=== PATIENT | female | born 1950 | race Caucasian/White ===

== ENCOUNTER 2018-10-19 22:37 | Emergency (ER) | payer OTHER ==
[2018-10-19] MEDS ORDERED: OXYMETAZOLINE 30 ML NASAL SPRAY ONE (22:48)
--- NOTE | 2018-10-19 23:05 | EDPHY ---
H & P Stated Complaint: nosebleed Time Seen by Provider: 10/19/18 23:04 HPI/ROS: HPI CHIEF COMPLAINT: Epistaxis. HISTORY OF PRESENT ILLNESS: 68-year-old female presents emergency room epistaxis, she is visiting from [place], she staying [place]. Approximately 2 hr ago she developed a nose bleed. She is on aspirin and Plavix. No trauma. Denies chest pain. Has had some increased fatigue at this elevation. But has been here multiple times before. No abnormal swelling. She staying well hydrated. She does not have any other complaints. She was unable to control her epistaxis home arrived to the emergency room by private vehicle. Past Medical History: History of coronary artery disease with stents, CHF on aspirin and Plavix Past Surgical History: Coronary artery disease with stent. Social History: Denies drugs alcohol tobacco. Family History: Noncontributory ROS REVIEW OF SYSTEMS: 10 Systems were reviewed and negative with the exception of the elements mentioned in the history of present illness. Exam Constitutional appears well nontoxic no acute distress triage nursing summary reviewed, vital signs reviewed, awake/alert. Eyes normal conjunctivae and sclera, EOMI, PERRLA. HENT anterior nose bleed right Nare. Left Nare: Blood present anterior. moist mucus membranes, no epistaxis, neck supple/ no meningismus, no raccoon eyes. Respiratory clear to auscultation bilaterally, normal breath sounds, no respiratory distress, no wheezing. Cardiovascular rate normal, regular rhythm, no murmur, no edema, distal pulses normal. Gastrointestinal soft, non-tender, no rebound, no guarding, normal bowel sounds, no distension, no pulsatile mass. Genitourinary no CVA tenderness. Musculoskeletal no midline vertebral tenderness, full range of motion, no calf swelling, no tenderness of extremities, no meningismus, good pulses, neurovascularly intact. Skin pink, warm, & dry, no rash, skin atraumatic. Neurologic awake, alert and oriented x 3, AAOx3, moves all 4 extremities equally, motor intact, sensory intact, CN II-XII intact, normal cerebellar, normal vision, normal speech. Psychiatric normal mood/affect. Heme/Lymph/Immune no lymphadenopathy. Differential Diagnosis: Includes but is not limited to in a particular order epistaxis on aspirin and Plavix, epistaxis from high altitude, epistaxis from low humidity. Medical Decision Making: Plan for this patient Afrin has been applied to both nares. Nasal clamp in place and will re-evaluate. May need to pack. Re-evaluation: Patient had Afrin applied to both nostrils and a clamp was applied. She was monitor for an hour continued to have bleeding mainly out of the left Nare. ED nosebleed Procedure: Afrin was applied to the left Nare. A 7.5 rhino rocket was inserted into the left Nare. Inflated to 10cc. She tolerated this very well. Good Hemostasis. 0212AM: Patient re-evaluated this time she has a nasal packing in place 7.5 rhino rocket. She has good hemostasis. Pain well controlled. She is resting comfortably and she is eager for discharge she is requesting discharge from the ER. I did explain she should have her packing removed in 24 hr. She is from out of [facility] typically follow up with ENT however she is due to go back to [place] soon. Recommend she return emergency room to have packing removed. At 2:12 a.m. The patient has no further bleeding and is comfortable for discharge. Return precautions discussed. Source: Patient - Personal History Current Tetanus Diphtheria and Acellular Pertussis (TDAP): Yes - Medical/Surgical History Hx Asthma: No Hx Chronic Respiratory Disease: Yes Hx Diabetes: No Hx Cardiac Disease: Yes Hx Renal Disease: No Hx Cirrhosis: No Hx Alcoholism: No Hx HIV/AIDS: No Hx Splenectomy or Spleen Trauma: No Other PMH: diverticulosous, hysterectomy, [place], EF of 33%, CHF, cholecysectomy - Social History Smoking Status: Never smoked Constitutional: Initial Vital Signs Temperature (C) 36.6 C 10/19/18 22:55 Heart Rate 73 10/19/18 22:55 Respiratory Rate 16 10/19/18 22:55 Blood Pressure 148/87 H 10/19/18 22:55 O2 Sat (%) 94 10/19/18 22:55 O2 Delivery Mode Room Air Allergies/Adverse Reactions: No Known Allergies Allergy (Unverified 10/19/18 22:50) Home Medications: Medication Instructions Recorded Aspirin 81mg (*) 10/19/18 Breo Ellipta 100-25 Mcg INH 10/19/18 Colestipol HCl 10/19/18 Desvenlafaxine 10/19/18 Diclofenac Sodium 1% 10/19/18 Fluticasone Propionate 10/19/18 Levothyroxine 10/19/18 Loratadine 10/19/18 Meclizine HCl 10/19/18 Meloxicam 10/19/18 Metoprolol Succinate 10/19/18 Montelukast Sodium 10/19/18 Pantoprazole Sodium 10/19/18 Plavix 10/19/18 Prednisone 10/19/18 Ventolin Hfa 10/19/18 hydrALAZINE 10/19/18 Medical Decision Making - Data Points Medications Given: Discontinued Medications Acetaminophen (Tylenol) 1,000 mg PO EDNOW ONE Stop: 10/20/18 01:14 Last Admin: 10/20/18 01:19 Dose: Not Given Acetaminophen (Tylenol) 650 mg PO EDNOW ONE Stop: 10/20/18 01:19 Last Admin: 10/20/18 01:19 Dose: 650 mg Departure - Departure Disposition: Home, Routine, Self-Care Clinical Impression: Epistaxis Condition: Good Instructions: Nosebleed (ED) Additional Instructions: 1. Return to the emergency room to have your nasal packing removed. 2. Return to the emergency room if you have further bleeding. Referrals: BARB GOLDEN [Other] - As per Instructions Rosendo Guerrero MD [Medical Doctor] - As per Instructions
[2018-10-20] MEDS ORDERED: ACETAMINOPHEN 500 MG TAB PO ONE (01:13)
[2018-10-20] MEDS ORDERED: ACETAMINOPHEN 325 MG TAB ONE (01:16)
[2018-10-20] MEDS ORDERED: ACETAMINOPHEN 325 MG TAB PO ONE (01:18)
[2018-10-20 01:47] VITALS: BP 134/61
== END 2018-10-20 02:20 | disposition home or self-care (01) ==
PROC: 2Y41X5Z Packing of Nasal Region using Packing Material (ICD-10-PCS; principal; 2018-10-19)
DX: R04.0 Epistaxis (principal); I25.10 Atherosclerotic heart disease of native coronary artery without angina pectoris; I50.9 Heart failure, unspecified; I25.2 Old myocardial infarction; Z79.02 Long term (current) use of antithrombotics/antiplatelets; Z79.82 Long term (current) use of aspirin; Z95.5 Presence of coronary angioplasty implant and graft

== ENCOUNTER 2018-10-20 16:02 | Emergency (ER) | payer OTHER ==
[2018-10-20 16:16] VITALS: BP 133/66
--- NOTE | 2018-10-20 16:40 | EDPHY ---
H & P Stated Complaint: f/u epistaxis Time Seen by Provider: 10/20/18 16:26 HPI/ROS: Chief Complaint: Epistaxis follow-up HPI: Patient was seen in the emergency department yesterday for epistaxis. She underwent nasal packing. She returns to the ED today for packing removal. She takes aspirin and Plavix which she is stop taking today. She has no acute complaints. REVIEW OF SYSTEMS: ENT: As above Musculoskeletal: Negative Respiratory: No cough or shortness of breath Source: Patient Exam Limitations: No limitations - Personal History Current Tetanus/Diphtheria Vaccine: Yes Current Tetanus Diphtheria and Acellular Pertussis (TDAP): Yes - Medical/Surgical History Hx Asthma: No Hx Chronic Respiratory Disease: Yes Hx Diabetes: No Hx Cardiac Disease: Yes Hx Renal Disease: No Hx Cirrhosis: No Hx Alcoholism: No Hx HIV/AIDS: No Hx Splenectomy or Spleen Trauma: No Other PMH: diverticulosous, hysterectomy, [place], EF of 33%, CHF, cholecysectomy - Social History Smoking Status: Never smoked - Physical Exam Exam: General: No acute distress ENT: Packing noted in left naris Lungs: Clear to auscultation Constitutional: Initial Vital Signs Temperature (C) 36.3 C 10/20/18 16:15 Heart Rate 74 10/20/18 16:15 Respiratory Rate 16 10/20/18 16:15 Blood Pressure 133/66 H 10/20/18 16:15 O2 Sat (%) 98 10/20/18 16:15 O2 Delivery Mode Room Air Allergies/Adverse Reactions: No Known Allergies Allergy (Unverified 10/20/18 16:15) Home Medications: Medication Instructions Recorded Aspirin 81mg (*) 10/19/18 Breo Ellipta 100-25 Mcg INH 10/19/18 Colestipol HCl 10/19/18 Desvenlafaxine 10/19/18 Diclofenac Sodium 1% 10/19/18 Fluticasone Propionate 10/19/18 Levothyroxine 10/19/18 Loratadine 10/19/18 Meclizine HCl 10/19/18 Meloxicam 10/19/18 Metoprolol Succinate 10/19/18 Montelukast Sodium 10/19/18 Pantoprazole Sodium 10/19/18 Plavix 10/19/18 Prednisone 10/19/18 Ventolin Hfa 10/19/18 hydrALAZINE 10/19/18 Medical Decision Making ED Course/Re-evaluation: Packing was removed without complication Departure - Departure Disposition: Home, Routine, Self-Care Clinical Impression: Encounter for removal of nasal packing Condition: Good Instructions: Nosebleed (ED) Referrals: NONE *PRIMARY CARE P,. [Primary Care Provider] - As per Instructions
== END 2018-10-20 16:45 | disposition home or self-care (01) ==
DX: Z48.00 Encounter for change or removal of nonsurgical wound dressing (principal)